=== PATIENT | male | born 1960 | race Caucasian/White ===

== ENCOUNTER 2017-03-07 09:58 | Emergency (ER) | payer SELFPAY ==
[2017-03-07 10:12] VITALS: PULSE 64; TEMP 98.9; O2SAT 97
--- NOTE | 2017-03-07 10:24 | C.PDOC ---
History Of Present Illness 56-year-old male, PMHx includes Hypertension (non-compliant with meds x1 year), presents to the emergency department with complaints of mild frontal headache. Patient states he wants his blood pressure to be checked. States he does not know which meds he is supposed to be taking. Patient denies nausea/vomiting, numbness/weakness, visual changes, or any other associated symptoms. No other complaints at this time. Time Seen by Provider: 03/07/17 10:15 Chief Complaint (Nursing): Headache History Per: Patient History/Exam Limitations: no limitations Onset/Duration Of Symptoms: Days Current Symptoms Are (Timing): Still Present Severity: Moderate Past Medical History Reviewed: Historical Data, Nursing Documentation, Vital Signs Vital Signs: Last Vital Signs Temp 98.9 F 03/07/17 10:19 Pulse 64 03/07/17 10:19 Resp 20 03/07/17 10:19 BP 145/85 03/07/17 10:19 Pulse Ox 97 03/07/17 11:00 - Medical History PMH: HTN Denies: Diabetes, Hepatitis, HIV, Seizures, Sexually Transmitted Disease Family History: States: No Known Family Hx - Social History Hx Alcohol Use: Yes Hx Substance Use: No - Immunization History Hx Tetanus Toxoid Vaccination: Yes Hx Influenza Vaccination: No Hx Pneumococcal Vaccination: No Review Of Systems Except As Marked, All Systems Reviewed And Found Negative. Constitutional: Negative for: Fever, Chills Cardiovascular: Negative for: Chest Pain Respiratory: Negative for: Shortness of Breath Musculoskeletal: Negative for: Neck Pain Neurological: Positive for: Headache. Negative for: Weakness, Numbness, Dizziness Physical Exam - Physical Exam Appears: Non-toxic, No Acute Distress Skin: Warm, Dry, No Rash Head: Atraumatic, Normacephalic Eye(s): bilateral: Normal Inspection, PERRL Nose: Normal Oral Mucosa: Moist Lips: Normal Appearing Neck: Normal ROM Cardiovascular: Rhythm Regular, No Murmur Respiratory: Normal Breath Sounds, No Accessory Muscle Use Extremity: Normal ROM Neurological/Psych: Oriented x3, Normal Speech ED Course And Treatment O2 Sat by Pulse Oximetry: 97 (on RA) Pulse Ox Interpretation: Normal Progress Note: Pt treated with Tylenol and Zestril. He was given Rx for BP meds and instructed to f/u outpatient with clinic. All questions answered. Disposition Counseled Patient/Family Regarding: Diagnosis, Need For Followup, Rx Given - Disposition Referrals: at [facility] [Outside] Disposition: HOME/ ROUTINE Disposition Time: 10:30 Condition: STABLE Additional Instructions: YOU NEED TO FOLLOW UP IN THE MEDICAL CLINIC IN 1-2 DAYS, AND FOR FURTHER EVALUATION OF YOUR BLOOD PRESSURE USE MEDICATIONS DAILY, AND OBTAIN THEM FROM MEDICAL CLINIC IN THE FUTURE RETURN TO ER IF YOU DEVELOP ANY CONCERNING SYMPTOMS Prescriptions: Lisinopril [Zestril] 20 mg PO DAILY #30 tablet Instructions: Hypertension (ED) Print Language: SAMMARINESE - POA Present On Arrival: None - Clinical Impression Clinical Impression: Hypertension, Noncompliance with medication regimen - Scribe Statement The provider has reviewed the documentation as recorded by the Scribe (Patito Pimentel) All medical record entries made by the Scribe were at my direction and personally dictated by me. I have reviewed the chart and agree that the record accurately reflects my personal performance of the history, physical exam, medical decision making, and the department course for this patient. I have also personally directed, reviewed, and agree with the discharge instructions and disposition.
[2017-03-07 10:32] VITALS: BP 145/85; RESP 20
== END 2017-03-07 10:34 | disposition home or self-care (01) ==
LOC: C.ER 09:58
DX: I10 Essential (primary) hypertension (principal); Z91.14 Patient's other noncompliance with medication regimen

== ENCOUNTER 2017-03-19 23:35 | Emergency (ER) | payer OTHER ==
[2017-03-19 23:41] VITALS: BP 153/92; PULSE 68; RESP 14; TEMP 97.3; O2SAT 97
[2017-03-20] MEDS ORDERED: Fluorescein 1 mg Ophthalmic Strip OS ONE (00:05)
[2017-03-20] MEDS ORDERED: Fluorescein 1 mg Ophthalmic Strip ONE (00:06)
--- NOTE | 2017-03-20 01:45 | C.PDOC ---
History Of Present Illness 56 y/o male presents to ED with complaints of left eye irritation. Patient states he was walking past a dumpster and felt something go in his eye and has been having discomfort since then. Patient reports trying to irrigate eye at home with no success. Patient admits to foreign body sensation and denies blurry vision, headache, eye discharge or any other complaints at this time. Tetanus vaccine UTD. Time Seen by Provider: 03/19/17 23:58 Chief Complaint (Nursing): Eye Problem History Per: Patient History/Exam Limitations: no limitations Onset/Duration Of Symptoms: Hrs Current Symptoms Are (Timing): Still Present Associated Symptoms: FB Sensation. denies: Decreased Vision Past Medical History Reviewed: Historical Data, Nursing Documentation, Vital Signs Vital Signs: Last Vital Signs Temp 97.3 F L 03/19/17 23:39 Pulse 68 03/19/17 23:39 Resp 14 03/19/17 23:39 BP 153/92 H 03/19/17 23:39 Pulse Ox 97 03/20/17 06:58 - Medical History PMH: HTN Family History: States: No Known Family Hx - Social History Hx Alcohol Use: Yes Hx Substance Use: No - Immunization History Hx Tetanus Toxoid Vaccination: Yes Hx Influenza Vaccination: No Hx Pneumococcal Vaccination: No Review Of Systems Eyes: Positive for: Pain, Redness. Negative for: Vision Change Skin: Negative for: Rash Neurological: Negative for: Headache Physical Exam - Physical Exam Appears: No Acute Distress Skin: Warm, Dry Head: Normacephalic Eye(s): bilateral: PERRL, EOMI, left: Other (Initially Foreign body not found, no conjunctival irritation) Nose: No Flaring Oral Mucosa: Moist Neck: Supple Chest: Symmetrical Cardiovascular: Rhythm Regular Respiratory: Normal Breath Sounds, No Rales, No Rhonchi, No Wheezing Neurological/Psych: Oriented x3, Normal Speech, Normal Cognition ED Course And Treatment O2 Sat by Pulse Oximetry: 97 (RA) Pulse Ox Interpretation: Normal Medical Decision Making Medical Decision Making: Eyelid flipped; no fb noted. Fluoroscein strip applied to eye with no uptake. Eye irriagated with 500ml lactated ringers. pot still feels fb in eye. Eyelid flipped again and minute speck of debris removed from upper lid with qtip. pt feeling decreased discomfort. will d/c with polytrim drops and ophthalmology f/ u. Disposition Counseled Patient/Family Regarding: Studies Performed, Diagnosis, Need For Followup, Rx Given - Disposition Referrals: Dannie Becker MD [Staff Provider] - Disposition: HOME/ ROUTINE Disposition Time: 01:49 Condition: IMPROVED Additional Instructions: Do not rub eye. Use ointment as prescribed. Follow up with Dr Becker on Thursday. Return to ER for any worsening symptoms, Prescriptions: Polymyxin/Trimethoprim Sulfate [Polytrim Ophth Soln] 1 drop OS Q4 #1 bottle Instructions: Eye Foreign Body (ED) Forms: [facility] (Armenian), General Discharge Instructions - Clinical Impression Clinical Impression: Foreign body of eyelid, left - Scribe Statement The provider has reviewed the documentation as recorded by the Scribgregg Lowry All medical record entries made by the Kipibgregg were at my direction and personally dictated by me. I have reviewed the chart and agree that the record accurately reflects my personal performance of the history, physical exam, medical decision making, and the department course for this patient. I have also personally directed, reviewed, and agree with the discharge instructions and disposition.
== END 2017-03-20 00:30 | disposition home or self-care (01) ==
LOC: C.ER 23:35
DX: T15.12XA Foreign body in conjunctival sac, left eye, initial encounter (principal); X58.XXXA Exposure to other specified factors, initial encounter